=== PATIENT | female | born 2000 ===

== ENCOUNTER 2023-12-14 02:36 | Emergency (ER) | payer SELFPAY ==
[~2023-12-14] VITALS: Ht 152.4 cm; Wt 63.0 kg
[2023-12-14 02:53] VITALS: TEMP 98
[2023-12-14] MEDS ORDERED: Magnesium Sulfate 4% 50 ML IV ONE (03:15)
[2023-12-14] MEDS ORDERED: Ketorolac 15 MG/ML VIAL IV ONE (03:15)
[2023-12-14] MEDS ORDERED: NS 1,000 ML IV ONE (03:15)
[2023-12-14] MEDS ORDERED: diphenhydrAMINE 50 MG/ML 1 ML VIAL IV ONE (03:15)
[2023-12-14 03:58] LABS: BASO # 0.1 K/mm3 (0.0-0.2); BASO % 0.3 % (0.0-2.0); EOS % 0.2 % (0.0-4.0); GRAN # 14.9 K/mm3 (1.4-6.5); GRAN % 82.6 % (42.2-75.2); HEMATOCRIT 42.3 % (37.0-47.0); HEMOGLOBIN 14.4 g/dl (12.5-16.0); LYMPH % 11.2 % (20.0-51.0); MEAN CELL VOLUME 84 fl (80.0-100.0); MEAN CORPUSCULAR HEMOGLOBIN 29 pg (27-31); MEAN CORPUSCULAR HGB CONC 34 g/dl (33.0-37.0); MEAN PLATELET VOLUME 11.3 fl (7.4-10.4); MONO % 5.4 % (1.7-9.3); PLATELET COUNT 338 K/mm3 (130-400); RED BLOOD COUNT 5.01 M/mm3 (4.10-5.30); REDCELL DISTRIBUTION WIDTH-CV 11.9 % (11.5-14.5)
[2023-12-14 04:29] LABS: CALCIUM 9.4 mg/dL (8.4-10.2); CREATININE, serum 0.62 mg/dL (0.57-1.11); POTASSIUM 3.3 mmol/L (3.5-4.5)
[2023-12-14 05:09] VITALS: BP 124/77; PULSE 64
== END 2023-12-14 05:11 | disposition home or self-care (01) ==
LOC: COL.ER 02:36
PROVIDERS: Internal Medicine
DX: O99.351 Diseases of the nervous system complicating pregnancy, first trimester (principal); G43.109 Migraine with aura, not intractable, without status migrainosus; O99.281 Endocrine, nutritional and metabolic diseases complicating pregnancy, first trimester; E86.0 Dehydration; Z3A.01 Less than 8 weeks gestation of pregnancy
CPT/HCPCS: J1200; J2765; J3475; J7030

== ENCOUNTER 2024-07-19 14:27 | Inpatient (IN) | payer SELFPAY ==
[2024-07-19] VITALS (12 sets, daily range): BP systolic 98–119; BP diastolic 58–81; PULSE 72–98; TEMP 98–98.2
[~2024-07-19] VITALS: Ht 160 cm; Wt 65.9 kg
--- NOTE | 2024-07-19 14:40 | NUR ---
PT ARRIVES AMBULATORY TO UNIT FOLLOWING OB CLINIC VISIT THIS AM. ULTRASOUND SHOWING IUGR, MEASURING LESS THAN FIRST PERCENTILE IN SIZE. RECOMMENDS INDUCTION. PT DENIES CONTRACTIONS AND LOF/VB. REPORTS POSITIVE MOVEMENT. CATEGORY 1 EFM TRACING UPON INITIAL ASSESSMENT. ON UNIT. PLAN TO PROCEED WITH CYTOTEC INDUCTION. ORIENTED TO PLAN OF CARE AT THIS TIME. FOB AND DAVID PRESENT AND SUPPORTIVE AT BEDSIDE.
[2024-07-19] MEDS ORDERED: LR & Oxytocin 500 ML IV SCH (15:00)
[2024-07-19] MEDS ORDERED: Terbutaline 1 MG/ML 1 ML AMP SQ PRN (15:00)
[2024-07-19] MEDS ORDERED: LR 1,000 ML IV SCH ×2 (15:00)
[2024-07-19 15:23] LABS: BASO % 0.2 % (0.0-2.0); EOS % 0.2 % (0.0-4.0); GRAN # 9.1 K/mm3 (1.4-6.5); HEMATOCRIT 37.3 % (37.0-47.0); HEMOGLOBIN 12.4 g/dl (12.5-16.0); LYMPH # 2.1 K/mm3 (1.2-3.4); MEAN CELL VOLUME 87 fl (80.0-100.0); MEAN CORPUSCULAR HEMOGLOBIN 29 pg (27-31); MEAN CORPUSCULAR HGB CONC 33 g/dl (33.0-37.0); MEAN PLATELET VOLUME 11.3 fl (7.4-10.4); MONO # 0.9 K/mm3 (0.1-0.6); MONO % 7.1 % (1.7-9.3); PLATELET COUNT 333 K/mm3 (130-400); RED BLOOD COUNT 4.28 M/mm3 (4.10-5.30); REDCELL DISTRIBUTION WIDTH-CV 12.9 % (11.5-14.5)
[2024-07-19] MEDS ORDERED: miSOPROStol 25 MCG (1/4th of 100 MCG) TAB VG SCH (15:30)
[2024-07-19] MEDS ORDERED: diphenhydrAMINE 25 MG CAP PO PRN (17:45)
[2024-07-19] MEDS ORDERED: ePHEDrine 50 MG/10 ML VIAL IV PRN (17:45)
[2024-07-19] MEDS ORDERED: diphenhydrAMINE 50 MG/ML 1 ML VIAL IV PRN (17:45)
[2024-07-19] MEDS ORDERED: Ondansetron 4 MG/2 ML VIAL IV PRN (17:45)
[2024-07-19] MEDS ORDERED: Naloxone 0.4 MG/ML VIAL IV PRN (17:45)
--- NOTE | 2024-07-19 19:35 | NUR ---
Category 1 FHR tracing obtained. Pt up to bathroom to void. SVE closed/thick/high. Second dose of cytotec 25 mcg placed to posterior fornix of vagina. Pt educated on importance of remaining semi flat with wedge for first hour after placement. Bed in low and locked position, call light within reach.
--- NOTE | 2024-07-19 23:43 | NUR ---
2320 - Pt up to bathroom to void. SVE closed/thick/high. 2343 - Category 1 FHR tracing obtained. 3rd dose of cytotec 25 mcg placed to posterior fornix of vagina. Pt positioned to wedge left. Call light within reach, bed in low and locked position.
[2024-07-19] MEDS ORDERED: miSOPROStol 25 MCG (1/4th of 100 MCG) TAB VG ONE (23:45)
[2024-07-20] VITALS (41 sets, daily range): BP systolic 81–1224; BP diastolic 51–100; PULSE 67–106; TEMP 97.9–98.8
--- NOTE | 2024-07-20 00:30 | NUR ---
Recurrent late decelerations noted, pt repositioned to right lateral with pillow support.
--- NOTE | 2024-07-20 00:45 | NUR ---
Recurrent variable and late decelerations noted. Pt repositioned to left lateral with pillow support. Lactated Ringers restarted to IV in left hand.
--- NOTE | 2024-07-20 05:38 | NUR ---
0515 - Pt requesting epidural. Dane Adamson CRNA called, will come to bedside. 0532 - JERSON Ryder at bedside. Pt positioned to sitting on edge of bed. Epidural procedure, risks, and benefits explained to patient, verbalized understanding. 0538 - Single shot at this time, pt denies any adverse reactions. 0545 - Pt positioned to wedge left with pillow support. Safety precautions explained. Call light within reach, bed in low and locked position. See anesthesia record.
[2024-07-20] MEDS ORDERED: ROPivacaine PF 0.2% 200 ML IV ONE (05:44)
[2024-07-20] MEDS ORDERED: Azithromycin 500 MG in NS 250 ML IV ONE (09:45)
[2024-07-20] MEDS ORDERED: Ketorolac 60 MG/2 ML VIAL IM ONE (09:46)
[2024-07-20] MEDS ORDERED: dexAMETHasone 10 MG/ML VIAL ONE (09:48)
[2024-07-20] MEDS ORDERED: NS 20 ML IV ONE (09:48)
[2024-07-20] MEDS ORDERED: Oxytocin 10 UNITS/ML VIAL ONE ×2 (09:48→10:23)
[2024-07-20] MEDS ORDERED: Ondansetron 4 MG/2 ML VIAL ONE (09:48)
[2024-07-20] MEDS ORDERED: Meperidine 50 MG/ML 1 ML VIAL ONE (10:04)
[2024-07-20] MEDS ORDERED: droPERidol 2.5 MG/ML 2 ML VIAL ONE (10:09)
[2024-07-20] MEDS ORDERED: LR 1,000 ML IV ONE (10:23)
[2024-07-20] MEDS ORDERED: Magnes Hydrox (MOM) 80 MG/ML 30 ML CUP PO PRN (10:45)
[2024-07-20] MEDS ORDERED: Loratadine 10 MG TAB PO PRN (10:45)
[2024-07-20] MEDS ORDERED: LR 1,000 ML IV PRN (11:00)
[2024-07-20] MEDS ORDERED: Ondansetron 4 MG/2 ML VIAL IV PRN (11:00)
[2024-07-20] MEDS ORDERED: Naloxone 0.4 MG/ML VIAL IV PRN (11:00)
[2024-07-20] MEDS ORDERED: oxyCODONE/Acetaminophen 5-325 MG TAB PO PRN (11:00)
[2024-07-20] MEDS ORDERED: Morphine 4 MG/ML VIAL IV PRN (11:00)
[2024-07-20] MEDS ORDERED: Measles/Mumps/Rubella Virus Vaccine Live w Diluent 0.5 ML VIAL SQ SCH (11:00)
[2024-07-20] MEDS ORDERED: Ibuprofen 800 MG TAB PO SCH (16:36)
[2024-07-20] MEDS ORDERED: Sennosides/Docusate 8.6-50 MG TAB PO SCH (17:00)
[2024-07-20] MEDS ORDERED: traZODone 50 MG TAB PO PRN (21:00)
[2024-07-21] VITALS (8 sets, daily range): BP systolic 65–110; BP diastolic 37–69; PULSE 57–101; TEMP 97.8–98.7
--- NOTE | 2024-07-21 14:00 | NUR ---
PT FAMILY MEMBER CAME OUT TO THE RN STATION AND SAID THE PATIENT WAS FEELING DIZZY. THE PATIENT WAS IN THE SHOWER. PT LOOKED PALE AND WAS SITTING ON A BENCH IN THE SHOWER. BEFORE MOVING THE PATIENT, THIS RN CHECKED THE PATIENT'S BLOOD PRESSURE. THE BP WAS 65/37. THE PATIENT STATED SHE STARTED TO FEEL A LITTLE BETTER. THIS RN CALLED FOR HELP, [employer]ARS ASSISTED THIS RN GETTING THE PATIENT BACK INTO BED. PT BED WAS LAID FLAT, AND TRAY SEARS RAISED FEET OF THE PATIENT. REPEAT BLOOD PRESSURE WAS 105/68. THE PATIENT GOT MORE COLOR BACK IN HER FACE, AND HER LIPS WERE NO LONGER LOOKING BLUE. THE PATIENT STATES THAT SHE IS FEELING MUCH BETTER. CHECK OF THE FUNDUS WAS BOGGY AND DIVERTED TO THE PATIENT RIGHT SIDE. BLADDER SCANNED THE PATIENT THAT SHOWED APPROXIMATELY 50ML IN THE BLADDER. RECHECK OF THE FUNDUS, BEGAN TO FIRM UP AND ALIGNED TO THE MIDDLE. PT REMAINED LAYING DOWN FOR 30 MINUTES. RECHECK OF THE PATIENT'S BLOOD PRESSURE AT 1430 IS 96/59. THE PATIENT REMAINS SUPINE AT THIS TIME. NO OTHER CONCERNS AT THIS TIME. BLOOD PRESSURES WILL CONTINUE EVERY 15 MINUTES UNTIL 1500. PT VERBALIZES UNDERSTANDING OF THE PLAN AT THIS TIME. WILL REMAIN SUPINE WITH LEGS ELEVATED.
[2024-07-22 08:00] VITALS: BP 102/72; PULSE 90; TEMP 98.1
[2024-07-22] MEDS ORDERED: IBU800 M1 PO (09:47)
[2024-07-22] MEDS ORDERED: PERCOCET 325 MG1 TA2 PO (09:47)
[2024-07-22 17:06] VITALS: BP 98/61; PULSE 91; TEMP 97.9
[2024-07-22 19:30] VITALS: BP 115/80; PULSE 82; TEMP 98.7
[2024-07-23 08:15] VITALS: BP 104/51; PULSE 88; TEMP 98.2
== END 2024-07-23 13:40 | disposition home or self-care (01) | DRG 540 ==
LOC: LDR 14:27 → OB 07-20 12:00
PROVIDERS: ADMIT Obstetrics & Gynecology
PROC: 3E0P7VZ Introduction of Hormone into Female Reproductive, Via Natural or Artificial Opening (ICD-10-PCS; 2024-07-19)
PROC: 10D00Z1 Extraction of Products of Conception, Low, Open Approach (ICD-10-PCS; principal; 2024-07-20)
PROC: 3E033VJ Introduction of Other Hormone into Peripheral Vein, Percutaneous Approach (ICD-10-PCS; 2024-07-20)
DX: O36.5930 Maternal care for other known or suspected poor fetal growth, third trimester, not applicable or unspecified (principal); Z37.0 Single live birth; O76 Abnormality in fetal heart rate and rhythm complicating labor and delivery; O99.343 Other mental disorders complicating pregnancy, third trimester; F41.9 Anxiety disorder, unspecified; Z3A.37 37 weeks gestation of pregnancy
CPT/HCPCS: A9284; J0456; J0665; J0690; J1100; J1790; J1885; J2175; J2405; J2590; J2795; J7050; J7120